=== PATIENT | female | born 1990 | race Hispanic/Latino ===

== ENCOUNTER 2024-10-24 19:18 | Emergency (ER) | payer SELFPAY ==
[2024-10-24 19:28] VITALS: BP 120/75
[2024-10-24 20:07] LABS: COVID-19 Antigen Negative (Negative)
--- NOTE | 2024-10-24 20:54 | ED.GENMED ---
History of Present Illness
General
Chief Complaint: Cold/Flu/URI Symptoms
Time Seen by Provider: 10/24/24 20:37
History of Present Illness
History of Present Illness:
34-year-old female presents the emergency department for evaluation of cough and bodyaches. Multiple sick members of family with similar symptoms. Denies chest pain or dyspnea at this time
Past History
Past History
ED Past Medical History: None
ED Past Surgical History: None
Social History
Tobacco: Non-smoker
Alcohol: None
Drug: None
Review of Systems
Review of Systems
Allergies reviewed?: Yes
All Other Systems: ROS reviewed and negative except as documented in HPI and ROS
Phy Exam
Physical Exam
Physical Exam:
GEN: Well appearing, NAD, WDWN
HEENT: Oral mucosa moist, no scleral icterus
Cardiac: Regular rate and rhythm, no murmurs
Lung: No respiratory distress, no tachypnea, lungs clear to auscultation bilaterally
MSK: No gross deformity or injuries
Skin: Good color, no pallor or jaundice, no rashes
Neuro: AO x3, moves all extremities freely
Psych: Calm, cooperative
Course
Orders/Labs/Results
Orders:
Orders
10/24/24 19:36
COVID-19 Antigen Urgent
Source: Nasal Swab
Influenza A+B Rapid Molecular Urgent
ELIANA Source: Nasal Swab
Specimen Description:
10/24/24 20:54
Acetaminophen [Tylenol] 1,000 mg PO NOW STA
Ibuprofen [Motrin] 600 mg PO NOW STA
Vital Signs
Initial and Last Documented VS:
Initial Vital Signs
Temp Pulse Resp BP Pulse Ox
99.4 F 115 22 120/75 98
10/24/24 19:28 10/24/24 19:28 10/24/24 19:28 10/24/24 19:28 10/24/24 19:28
Last Documented Vital Signs
Temp Pulse Resp BP Pulse Ox
99.4 F 115 22 120/75 98
10/24/24 19:28 10/24/24 19:28 10/24/24 19:28 10/24/24 19:28 10/24/24 19:28
MDM/Problems Addressed
MDM/Problems Addressed:
Patient is positive for influenza A, clinically stable, no indication for antivirals
*Critical Care Note
Total Time (30-74mins, 75-104mins- exclusive of procedures): Not Applicable
ED Attending Note
-
Portions of this chart may have been created with voice recognition software.� Occasional wrong word or��sound alike� substitutions may have occurred due to the inherent limitations of voice recognition software.
Discharge Plan
Departure
Patient Disposition: Home (Routine Discharge)
Date of Disposition: 10/24/24
Time of Disposition: 20:54
Patient with high blood pressure during this ER visit?: No
Discharge Problem:
Influenza A
Instructions: Flu
Prescriptions:
No Action
amoxicillin-pot clavulanate 1 TABLET tablet
1 tab PO Q12 Qty: 9 0RF
amoxicillin 875 mg tablet
875 mg PO BID Qty: 20 0RF
Stand Alone Forms: Return to Work
Interventions
Interventions:
*Risk Screen - Suicide Last Done: 10/24/24 19:28
*General Assessment Last Done: 10/24/24 19:28
*Neglect/Abuse Screening Last Done: 10/24/24 19:28
ED- Fall Risk Assessment Last Done: 10/24/24 22:02
*ED COVID-19 Vaccine History Last Done: 10/24/24 21:05
*Nursing Disposition Last Done: 10/24/24 22:02
ED- Pulmonary Assessment Last Done: 10/24/24 21:05
Discharge Date and Time
Discharge Date/Time: 10/24/24 22:02
Print Language: GUAMANIAN
[2024-10-24] MEDS: TYLENOL 1000 MG PO (21:02)
[2024-10-24] MEDS: MOTRIN 600 MG PO (21:03)
== END 2024-10-24 22:02 | disposition home or self-care (01) ==
LOC: EMR 19:18
PROVIDERS: Emergency Medicine; EMERGENCY PHYSICIAN Student in an Organized Health Care Education/Training Program
DX: J10.1 Influenza due to other identified influenza virus with other respiratory manifestations (principal); Z11.52 Encounter for screening for COVID-19
CPT/HCPCS: 99283; 87502; 87811

== ENCOUNTER → 2024-10-31 16:51 | Outpatient (REF) | payer OTHER, SELFPAY ==
[2024-10-31 17:35] LABS: % Basophils 0.7 % (0-2); % Eosinophils 5.3 % (0-6); % Immature Granulocytes 0.4 % (0-0.5); % Lymphocytes 30.9 % (20.5-51.1); % Monocytes 7.8 % (1.7-9.3); % Neutrophils 54.9 % (42.2-75.2); Absolute Basophils 0.1 10^3/uL (0-0.2); Absolute Eosinophils 0.4 10^3/uL (0-0.7); Absolute Lymphocytes 2.1 10^3/uL (1.2-3.4); Absolute Monocytes 0.5 10^3/uL (0.1-0.6); Absolute Neutrophils 3.7 10^3/uL (1.4-6.5); Hematocrit 35.7 % (37.0-47.0); Hemoglobin 11.4 g/dL (12.0-16.0); Mean Corp Hgb Conc. 31.9 g/dL (33.0-37.0); Mean Corpuscular Hgb 24.5 pg (27.0-31.0); Mean Corpuscular Volume 76.6 fL (81.0-99.0); Nucleated Red Blood Cells % 0 %; Platelet Count 345 10^3/uL (130-400); Red Blood Cell Count 4.66 10^6/uL (4.20-5.40); Red Cell Dist. Width 14.5 % (11.5-14.5); Reticulocyte Count 1.5 % (0.4-2.8); White Blood Cell Count 6.8 10^3/uL (4.8-10.8)
[2024-10-31 17:52] LABS: ALT (SGPT) 44 U/L (0-35); AST (SGOT) 32 U/L (14-36); Albumin 4.5 g/dl (3.5-5.0); Alkaline Phosphatase 101 U/L (38-126); Blood Urea Nitrogen 6 mg/dl (7-17); Calcium 9.5 mg/dl (8.4-10.2); Carbon Dioxide 25 mmol/L (22-30); Chloride 101 mmol/L (98-107); Glucose 90 mg/dl (70-99); Potassium 4.2 mmol/L (3.5-5.1); Sodium 136 mmol/L (135-145); Total Bilirubin 0.4 mg/dl (0.2-1.3); Total Protein 6.9 g/dl (6.3-8.2); eGFR > 60.00
[2024-10-31 18:26] LABS: Ferritin 9.2 ng/ml (6.24-137)
[2024-11-01 10:39] LABS: Glycohemoglobin (HgbA1c) 5.7 % (4.0-5.6)
== END ==
LOC: CLINIC 16:51
PROVIDERS: ATTENDING PHYSICIAN Internal Medicine
DX: Z13.1 Encounter for screening for diabetes mellitus (principal); D50.0 Iron deficiency anemia secondary to blood loss (chronic)
CPT/HCPCS: 36415; 80053; 82728; 83036; 84443; 85025; 85045